=== PATIENT | male | born 1990 | race Caucasian/White ===

== ENCOUNTER → 2016-03-18 | Outpatient (CLI) | payer SELFPAY ==
[~2016-03-18] MED LIST: ADDERALL30 MG PO; FLUOXETINE PO; UNABLE
== END ==
LOC: BHSO 14:38
DX: F31.81 Bipolar II disorder (principal)

== ENCOUNTER → 2016-07-02 | Outpatient (CLI) | payer SELFPAY | LOC: BHSO 09:24 | DX: F90.0 Attention-deficit hyperactivity disorder, predominantly inattentive type (principal) ==

== ENCOUNTER → 2016-09-12 | Outpatient (CLI) | payer SELFPAY | LOC: BHSO 13:44 | DX: F31.73 Bipolar disorder, in partial remission, most recent episode manic (principal) ==

== ENCOUNTER → 2016-12-06 | Outpatient (CLI) | payer SELFPAY | LOC: BHSO 14:49 | DX: F41.1 Generalized anxiety disorder (principal) ==

== ENCOUNTER → 2017-02-28 | Outpatient (CLI) | payer OTHER | LOC: BHSO 10:33 | DX: F33.1 Major depressive disorder, recurrent, moderate (principal) | CPT/HCPCS: G0463 ==

== ENCOUNTER → 2017-08-08 | Outpatient (CLI) | payer OTHER | LOC: BHSO 14:18 | DX: F90.0 Attention-deficit hyperactivity disorder, predominantly inattentive type (principal) | CPT/HCPCS: G0463 ==

== ENCOUNTER → 2017-11-21 | Outpatient (CLI) | payer OTHER | LOC: BHSO 08:48 | DX: F90.0 Attention-deficit hyperactivity disorder, predominantly inattentive type (principal) | CPT/HCPCS: G0463 ==

== ENCOUNTER → 2018-08-28 | Outpatient (CLI) | payer OTHER | LOC: BHSO 14:37 | DX: F90.0 Attention-deficit hyperactivity disorder, predominantly inattentive type (principal) | CPT/HCPCS: G0463 ==

== ENCOUNTER → 2019-01-08 | Outpatient (CLI) | payer OTHER | LOC: BHSO 14:36 | DX: F33.1 Major depressive disorder, recurrent, moderate (principal) | CPT/HCPCS: G0463 ==

== ENCOUNTER → 2019-03-30 | Outpatient (CLI) | payer OTHER | LOC: BHSO 08:59 | DX: F90.0 Attention-deficit hyperactivity disorder, predominantly inattentive type (principal) | CPT/HCPCS: G0463 ==

== ENCOUNTER → 2019-10-22 | Outpatient (CLI) | payer OTHER | LOC: BHSO 15:53 | DX: F90.0 Attention-deficit hyperactivity disorder, predominantly inattentive type (principal) | CPT/HCPCS: G0463 ==

== ENCOUNTER → 2020-01-14 | Outpatient (CLI) | payer OTHER | LOC: BHSO 16:00 | DX: F90.0 Attention-deficit hyperactivity disorder, predominantly inattentive type (principal) | CPT/HCPCS: G0463 ==